=== PATIENT | female | born 1990 | race Caucasian/White ===

== ENCOUNTER 2023-05-27 00:11 | Emergency (ER) | payer SELFPAY ==
[~2023-05-27] VITALS: Ht 160 cm; Wt 52.2 kg
[2023-05-27 00:14] VITALS: BP 104/73; PULSE 62; RESP 14; TEMP 97.1; O2SAT 99
== END 2023-05-27 00:40 | disposition left against medical advice (07) ==
LOC: MED 00:11
DX: R11.2 Nausea with vomiting, unspecified (principal); Z53.21 Procedure and treatment not carried out due to patient leaving prior to being seen by health care provider
CPT/HCPCS: 99281

== ENCOUNTER 2023-05-27 03:40 | Emergency (ER) | payer SELFPAY ==
[~2023-05-27] VITALS: Ht 160 cm; Wt 52.2 kg
[2023-05-27 03:43] VITALS: BP 101/61; PULSE 81; RESP 19; TEMP 98.1; O2SAT 98
[2023-05-27] MEDS ORDERED: NACL 0.9% 1,000 ML IV ONE (04:00)
[2023-05-27] MEDS ORDERED: ONDANSETRON 4 MG/2 ML VIAL IVP ONE (04:00)
[2023-05-27] MEDS ORDERED: HALOPERIDOL IM 5 MG/ML VIAL IM ONE (05:30)
[2023-05-27] MEDS ORDERED: KETOROLAC 30 MG/ML VIAL IVP ONE (05:30)
[2023-05-27 06:07] LABS: BASOPHILS % (AUTO) 0.2 % (0.0-2.0); EOSINOPHILS % (AUTO) 0.1 % (0.0-4.0); HEMOGLOBIN 13.9 g/dL (12.0-16.0); LYMPHOCYTES % (AUTO) 14.8 % (20.5-51.1); MEAN CORPUSCULAR HEMOGLOBIN 32 pg (27-31); MEAN CORPUSCULAR HGB CONC 35 g/dL (33-37); MEAN CORPUSCULAR VOLUME 91.7 fL (80-94); MONOCYTES # (AUTO) 0.2 K/uL (0.8-1.0); MONOCYTES % (AUTO) 3.6 % (1.7-9.3); NEUTROPHILS # (AUTO) 5.3 K/uL (1.8-7.7); NEUTROPHILS % (AUTO) 81.3 % (42.2-75.2); PLATELET COUNT (AUTO) 264 K/uL (140-450); RED BLOOD CELL COUNT(AUTO) 4.37 MIL/uL (4.20-5.40); RED CELL DISTRIBUTION WIDTH 13.6 % (11.6-13.7); WHITE BLOOD COUNT (AUTO) 6.5 K/uL (4.8-10.8)
[2023-05-27 06:22] LABS: ALBUMIN 3.9 g/dL (3.4-5.0); ANION GAP 13.5 (8-16); CALCIUM 9.6 mg/dL (8.5-10.1); CARBON DIOXIDE 29.2 mmol/L (21-32); CREATININE 0.9 mg/dL (0.6-1.3); POTASSIUM 3.7 mmol/L (3.5-5.1); TOTAL BILIRUBIN 0.5 mg/dL (0.0-1.0); TOTAL PROTEIN, SERUM 9.1 g/dL (6.4-8.2)
[2023-05-27] MEDS ORDERED: METOCLOPRAMIDE 10 MG/2 ML INJ VIAL IVP ONE (06:45)
[2023-05-27 07:32] VITALS: BP 110/45; PULSE 67; RESP 18; TEMP 98.2; O2SAT 100
== END 2023-05-27 07:32 | disposition home or self-care (01) ==
LOC: MED 03:40
DX: F11.23 Opioid dependence with withdrawal (principal); Z79.899 Other long term (current) drug therapy
CPT/HCPCS: 36415; 80053; 83690; 85025; 96361; 96372; 96374; 96375; 99284; J1630; J1885; J2405; J2765; J7030

== ENCOUNTER 2023-06-05 05:00 | Emergency (ER) | payer MEDICAID ==
[~2023-06-05] VITALS: Ht 160 cm; Wt 52.2 kg
[2023-06-05 05:01] VITALS: BP 131/88; PULSE 68; RESP 16; TEMP 98.4; O2SAT 100
[2023-06-05 05:13] VITALS: O2SAT 100
[2023-06-05] MEDS: NACL 0.9% 1,000 ML IV ONE (05:45)
[2023-06-05] MEDS: ONDANSETRON 4 MG/2 ML VIAL IVP ONE (05:46)
[2023-06-05] MEDS: HALOPERIDOL IM 5 MG/ML VIAL IM ONE (06:09)
[2023-06-05] MEDS: KETOROLAC 30 MG/ML VIAL IVP ONE (06:09)
[2023-06-05] MEDS: buprenorphine HCL 2 MG sublingual tab SL ONE (06:16)
[2023-06-05 06:32] LABS: APPEARANCE,URINE CLEAR (CLEAR); BILIRUBIN,URINE NEGATIVE (NEGATIVE); BLOOD, URINE NEGATIVE (NEGATIVE); COLOR,URINE YELLOW (YELLOW); LEUKOCYTE ESTERASE ,URINE NEGATIVE (NEGATIVE); NITRITE, URINE NEGATIVE (NEGATIVE); PROTEIN,URINE NEGATIVE (NEGATIVE); UGLUCOSE NEGATIVE (NEGATIVE); UROBILINOGEN,URINE 0.2 EU/dL (0.2 - 1)
[2023-06-05 06:35] LABS: BACTERIA,URINE OCCASSIONAL /HPF (None Seen); RBC,URINE 0-5 /HPF (0-5); SQUAMOUS EPITHELIAL CELL,UR 0-3 (FEW) /LPF (0-3 (FEW)); WBC,URINE 0-5 /HPF (0-5)
== END 2023-06-05 07:14 | disposition home or self-care (01) ==
LOC: MED 05:00
DX: F11.10 Opioid abuse, uncomplicated (principal); R11.2 Nausea with vomiting, unspecified; R10.84 Generalized abdominal pain; F17.200 Nicotine dependence, unspecified, uncomplicated; Z98.890 Other specified postprocedural states; Z88.0 Allergy status to penicillin
CPT/HCPCS: 81001; 81025; 96361; 96372; 96374; 96375; 99284; J1630; J1885; J2405; J7030

== ENCOUNTER 2023-06-09 04:35 | Emergency (ER) | payer MEDICAID ==
[~2023-06-09] VITALS: Ht 165.1 cm; Wt 52.2 kg
[2023-06-09 04:40] VITALS: BP 149/94; PULSE 71; RESP 18; TEMP 97.6; O2SAT 98
[2023-06-09 04:46] VITALS: O2SAT 98
[2023-06-09] MEDS ORDERED: ONDANSETRON 4 MG/2 ML VIAL ONE (05:15)
[2023-06-09] MEDS: NACL 0.9% 1,000 ML IV ONE (05:40)
[2023-06-09] MEDS: ONDANSETRON 4 MG/2 ML VIAL IVP ONE (05:40)
[2023-06-09 05:48] LABS: BASOPHILS % (AUTO) 0.3 % (0.0-2.0); EOSINOPHILS # (AUTO) 0.1 K/uL (0-0.4); EOSINOPHILS % (AUTO) 0.6 % (0.0-4.0); HEMOGLOBIN 13.9 g/dL (12.0-16.0); LYMPHOCYTES # (AUTO) 1.9 K/uL (2.5-16.5); MEAN CORPUSCULAR HEMOGLOBIN 31 pg (27-31); MEAN CORPUSCULAR HGB CONC 34 g/dL (33-37); MEAN CORPUSCULAR VOLUME 92.4 fL (80-94); MONOCYTES # (AUTO) 0.4 K/uL (0.8-1.0); MONOCYTES % (AUTO) 4.7 % (1.7-9.3); NEUTROPHILS # (AUTO) 7.1 K/uL (1.8-7.7); NEUTROPHILS % (AUTO) 74.4 % (42.2-75.2); PLATELET COUNT (AUTO) 314 K/uL (140-450); RED BLOOD CELL COUNT(AUTO) 4.43 MIL/uL (4.20-5.40); RED CELL DISTRIBUTION WIDTH 14.1 % (11.6-13.7); WHITE BLOOD COUNT (AUTO) 9.5 K/uL (4.8-10.8)
[2023-06-09 06:08] LABS: ALBUMIN 3.7 g/dL (3.4-5.0); ANION GAP 14.7 (8-16); CALCIUM 8.9 mg/dL (8.5-10.1); CARBON DIOXIDE 25.4 mmol/L (21-32); CREATININE 0.8 mg/dL (0.6-1.3); POTASSIUM 4.1 mmol/L (3.5-5.1); TOTAL PROTEIN, SERUM 8.5 g/dL (6.4-8.2)
[2023-06-09 06:23] LABS: TOTAL BILIRUBIN 0.2 mg/dL (0.0-1.0)
[2023-06-09] MEDS: HALOPERIDOL IM 5 MG/ML VIAL IM ONE (06:31)
[2023-06-09] MEDS: METOCLOPRAMIDE 10 MG/2 ML INJ VIAL IVP ONE (07:16)
[2023-06-09] MEDS: diphenhydrAMINE 50 MG/ML VIAL IVP ONE (07:16)
[2023-06-09] MEDS ORDERED: ONDA-188 SL (07:27)
[2023-06-09] MEDS: buprenorphine HCL 2 MG sublingual tab SL ONE (07:30)
[2023-06-09 07:45] LABS: APPEARANCE,URINE CLEAR (CLEAR); BILIRUBIN,URINE NEGATIVE (NEGATIVE); BLOOD, URINE NEGATIVE (NEGATIVE); COLOR,URINE YELLOW (YELLOW); LEUKOCYTE ESTERASE ,URINE NEGATIVE (NEGATIVE); NITRITE, URINE NEGATIVE (NEGATIVE); PH,URINE 7.5 (5.0-9.0); PROTEIN,URINE NEGATIVE (NEGATIVE); UGLUCOSE NEGATIVE (NEGATIVE); UROBILINOGEN,URINE 0.2 EU/dL (0.2 - 1)
[2023-06-09 07:52] VITALS: BP 139/92; PULSE 72; RESP 16; TEMP 97.7; O2SAT 100
[2023-06-09 08:08] LABS: AMPHETAMINE, URINE NEGATIVE ng/ml (NEG <=1000); BARBITURATE, URINE NEGATIVE ng/ml (NEG <=200); BENZODIAZEPINE, URINE POSITIVE ng/mL (NEG <=200); CANNABINOID, URINE NEGATIVE ng/mL (NEG <=50); COCAINE, URINE NEGATIVE ng/mL (NEG <=300); OPIATE, URINE NEGATIVE ng/mL (NEG <=2000); PHENCYCLIDINE SCREEN,URINE NEGATIVE ng/mL (NEG <=25)
== END 2023-06-09 07:52 | disposition home or self-care (01) ==
LOC: MED 04:35
DX: R11.2 Nausea with vomiting, unspecified (principal); F11.10 Opioid abuse, uncomplicated; F17.200 Nicotine dependence, unspecified, uncomplicated; Z79.899 Other long term (current) drug therapy; Z88.0 Allergy status to penicillin
CPT/HCPCS: 36415; 80053; 80305; 81003; 81025; 83690; 85025; 96361; 96372; 96374; 99284; J1200; J1630; J2405; J2765; J7030

== ENCOUNTER 2023-06-14 23:40 | Emergency (ER) | payer MEDICAID ==
[~2023-06-14] VITALS: Ht 157.5 cm; Wt 52.2 kg
[~2023-06-14 23:40] MED LIST: ONDA-188 SL
[2023-06-14 23:55] VITALS: BP 109/81; PULSE 102; RESP 16; TEMP 98.2; O2SAT 98
[2023-06-15 00:13] LABS: APPEARANCE,URINE SL CLOUDY (CLEAR); BILIRUBIN,URINE NEGATIVE (NEGATIVE); BLOOD, URINE NEGATIVE (NEGATIVE); COLOR,URINE YELLOW (YELLOW); LEUKOCYTE ESTERASE ,URINE NEGATIVE (NEGATIVE); NITRITE, URINE NEGATIVE (NEGATIVE); PROTEIN,URINE NEGATIVE (NEGATIVE); UGLUCOSE NEGATIVE (NEGATIVE); UROBILINOGEN,URINE 0.2 EU/dL (0.2 - 1)
[2023-06-15 00:20] VITALS: O2SAT 99
[2023-06-15 01:33] LABS: AMPHETAMINE, URINE NEGATIVE ng/ml (NEG <=1000); BARBITURATE, URINE NEGATIVE ng/ml (NEG <=200); BENZODIAZEPINE, URINE POSITIVE ng/mL (NEG <=200); CANNABINOID, URINE NEGATIVE ng/mL (NEG <=50); COCAINE, URINE NEGATIVE ng/mL (NEG <=300); OPIATE, URINE NEGATIVE ng/mL (NEG <=2000); PHENCYCLIDINE SCREEN,URINE NEGATIVE ng/mL (NEG <=25)
[2023-06-15] MEDS: METOCLOPRAMIDE 10 MG/2 ML INJ VIAL IVP ONE (01:40)
[2023-06-15] MEDS: diphenhydrAMINE 50 MG/ML VIAL IVP ONE (01:43)
[2023-06-15] MEDS: buprenorphine HCL 2 MG sublingual tab SL ONE (02:13)
[2023-06-15 02:23] VITALS: O2SAT 99
[2023-06-15] MEDS ORDERED: diphenhydrAMINE 50 MG/ML VIAL ONE (03:08)
[2023-06-15] MEDS ORDERED: METOCLOPRAMIDE 10 MG/2 ML INJ VIAL ONE (03:08)
[2023-06-15] MEDS: NACL 0.9% 1,000 ML IV ONE (03:15)
[2023-06-15 04:47] VITALS: BP 98/55; PULSE 87; RESP 14; TEMP 97.9; O2SAT 99
== END 2023-06-15 04:46 | disposition home or self-care (01) ==
LOC: MED 23:40
DX: F11.23 Opioid dependence with withdrawal (principal); R11.2 Nausea with vomiting, unspecified; Z79.899 Other long term (current) drug therapy
CPT/HCPCS: 80305; 81003; 81025; 96361; 96374; 96375; 99285; J1200; J2765; J7030